=== PATIENT | male | born 1950 | race Caucasian/White ===

== ENCOUNTER 2021-03-25 15:32 | Inpatient (IN) ==
[2021-03-25] MEDS ORDERED: ONDANSETRON 4 MG/2 ML VIAL IV PRN (17:41)
[2021-03-25] MEDS ORDERED: ACETAMINOPHEN 325 MG TABLET PO PRN (17:41)
[2021-03-25] MEDS ORDERED: ALUMINUM/MAGNES/SIMETH MAX STR 30 ML UDCUP PO PRN (17:41)
[2021-03-25] MEDS ORDERED: PANTOPRAZOLE 40 MG VIAL IV ONE (18:14)
[2021-03-25] MEDS ORDERED: SODIUM CHLORIDE 0.9% 1,000 ML IV PRN (18:21)
[2021-03-25 18:36] LABS: Basophils # 0.1 10*3/uL (0.0-0.2); Basophils % 0.5 % (0.0-0.8); Eosinophils # 0.2 10*3/uL (0.0-0.87); Eosinophils % 1.8 % (0.00-10.9); Hematocrit 21.8 VOL% (42.0-52.0); Immature Granulocytes % 0.5 %; Immature Granulocytes Absolute 0.05 #; Lymphocytes # 1.3 10*3/uL (1.4-4.0); Lymphocytes % 12.8 % (21.2-54.2); Mean Corpuscular HGB Conc 26.6 GM/DL (32-36); Mean Corpuscular Volume 78.7 FL (87-102); Mean Platelet Volume 11.2 FL (9.6-12.0); Monocytes % 4.9 % (1.7-12.7); NRBC # 0.03 10*3/uL; Neutrophils % 79.5 % (38.7-73.9); Platelet Count 320 T/CUMM (130-400); Red Blood Count 2.77 MC/CUMM (3.8-5.5); Red Cell Distribution Width 18.8 % (9.3-17.3); White Blood Count 10.1 T/CUMM (4-12)
[2021-03-25] MEDS ORDERED: INFLUENZA VIRUS VACCINE 0.5 ML SYRINGE IM ONE (18:36)
[2021-03-25 18:50] LABS: Hemoglobin 5.8 GM/DL (14.0-18.0)
[2021-03-25 18:52] LABS: INR 1.1; PT Patient Result 12.3 SECS (10.5-12.0)
[2021-03-25 18:53] LABS: Alanine Aminotransferase 12 U/L (16-61); Albumin 2.7 G/DL (3.4-5.0); Alkaline Phosphatase 58 U/L (45-117); Aspartate Amino Transferase 17 U/L (0-37); Bilirubin,Total < 0.39 MG/DL (0.20-1.00); Blood Urea Nitrogen 20 MG/DL (7-18); Calcium 8.4 MG/DL (8.5-10.1); Carbon Dioxide 26 MMOL/L (21-32); Estimated Glom Filtration Rate 54 ML/MIN; Glucose 107 MG/DL (74-106); Osmolality,Calculated 279.5 MOS/KG (273-304); Sodium 139 MMOL/L (136-145); Total Protein 6.3 G/DL (6.4-8.2)
[2021-03-25 19:06] LABS: % Iron Saturation 3.2 % (18-50); Ferritin 22.9 ng/mL (26-388)
[2021-03-25 19:15] LABS: Folate 9.14 NG/ML (5.38-24.0)
[2021-03-25] MEDS: ATORVASTATIN 40 MG TABLET PO SCH (21:07)
[2021-03-25] MEDS: tiZANidine 4 MG TABLET PO SCH (21:07)
[2021-03-25] MEDS: DULoxetine 30 MG CAPSULE PO SCH (21:07)
[2021-03-25] MEDS: PREGABALIN 75 MG CAPSULE PO SCH (21:08)
[2021-03-25] MEDS: traZODone 50 MG TABLET PO SCH (21:08)
[2021-03-26 07:02] LABS: Basophils % 0.5 % (0.0-0.8); Eosinophils # 0.2 10*3/uL (0.0-0.87); Hematocrit 30.8 VOL% (42.0-52.0); Hemoglobin 9.6 GM/DL (14.0-18.0); Immature Granulocytes % 0.5 %; Immature Granulocytes Absolute 0.04 #; Lymphocytes # 0.9 10*3/uL (1.4-4.0); Lymphocytes % 11.9 % (21.2-54.2); Mean Corpuscular HGB Conc 31.2 GM/DL (32-36); Mean Corpuscular Volume 78.4 FL (87-102); Mean Platelet Volume 11.7 FL (9.6-12.0); Monocytes % 5.9 % (1.7-12.7); NRBC # 0.06 10*3/uL; Neutrophils % 79.2 % (38.7-73.9); Platelet Count 243 T/CUMM (130-400); Red Blood Count 3.93 MC/CUMM (3.8-5.5); Red Cell Distribution Width 18.7 % (9.3-17.3); White Blood Count 7.8 T/CUMM (4-12)
[2021-03-26 07:18] LABS: Alanine Aminotransferase < 9 U/L (16-61); Albumin 2.1 G/DL (3.4-5.0); Alkaline Phosphatase 51 U/L (45-117); Aspartate Amino Transferase 17 U/L (0-37); Blood Urea Nitrogen 17 MG/DL (7-18); Calcium 8.3 MG/DL (8.5-10.1); Carbon Dioxide 25 MMOL/L (21-32); Estimated Glom Filtration Rate 74 ML/MIN; Glucose 70 MG/DL (74-106); Osmolality,Calculated 278.4 MOS/KG (273-304); Potassium 3.9 MMOL/L (3.5-5.1); Sodium 140 MMOL/L (136-145); Total Protein 5.2 G/DL (6.4-8.2)
[2021-03-26] MEDS: LACTATED RINGERS 1,000 ML IV SCH ×2 (08:30→08:34)
[2021-03-26] MEDS ORDERED: PANTOPRAZOLE 40 MG VIAL IV SCH (09:00)
[2021-03-26] MEDS ORDERED: tiZANidine 4 MG TABLET PO PRN (09:14)
[2021-03-26] MEDS ORDERED: ETOMIDATE 20 MG/10 ML VIAL IV ONE (09:34)
[2021-03-26] MEDS ORDERED: propofoL 200 MG/20 ML VIAL IV ONE (09:34)
[2021-03-26] MEDS ORDERED: GLYCOPYRROLATE 0.4 MG/2 ML VIAL ONE (09:34)
[2021-03-26] MEDS ORDERED: LIDOCAINE 2% 5 ML VIAL ONE (09:34)
[2021-03-26] MEDS: EZETIMIBE 10 MG TABLET PO SCH (10:34)
[2021-03-26] MEDS: PREGABALIN 75 MG CAPSULE PO SCH ×2 (10:34→20:46)
[2021-03-26] MEDS: DULoxetine 30 MG CAPSULE PO SCH ×2 (10:34→20:46)
[2021-03-26] MEDS: METOPROLOL TARTRATE 25 MG TABLET PO SCH ×2 (10:34→20:46)
[2021-03-26 10:37] LABS: Hematocrit 31.5 VOL% (42.0-52.0)
[2021-03-26] MEDS: tiZANidine 4 MG TABLET PO SCH (10:37)
[2021-03-26 18:29] LABS: Hematocrit 34.9 VOL% (42.0-52.0); Hemoglobin 10.6 GM/DL (14.0-18.0)
[2021-03-26] MEDS: PANTOPRAZOLE 40 MG TABLET PO SCH (20:46)
[2021-03-26] MEDS: FERROUS SULFATE 325 MG TABLET PO SCH (20:46)
[2021-03-26] MEDS: ATORVASTATIN 40 MG TABLET PO SCH (20:46)
[2021-03-26] MEDS: traZODone 50 MG TABLET PO SCH (20:47)
[2021-03-27 05:33] LABS: Basophils % 0.3 % (0.0-0.8); Eosinophils # 0.2 10*3/uL (0.0-0.87); Eosinophils % 1.5 % (0.00-10.9); Hematocrit 32.8 VOL% (42.0-52.0); Immature Granulocytes % 0.4 %; Immature Granulocytes Absolute 0.04 #; Lymphocytes # 1.3 10*3/uL (1.4-4.0); Lymphocytes % 12.9 % (21.2-54.2); Mean Corpuscular HGB Conc 30.5 GM/DL (32-36); Mean Corpuscular Volume 78.1 FL (87-102); Mean Platelet Volume 11.3 FL (9.6-12.0); Monocytes % 6.7 % (1.7-12.7); NRBC # 0.05 10*3/uL; Neutrophils % 78.2 % (38.7-73.9); Platelet Count 261 T/CUMM (130-400); Red Cell Distribution Width 18.9 % (9.3-17.3); White Blood Count 9.7 T/CUMM (4-12)
[2021-03-27 05:49] LABS: Calcium 8.1 MG/DL (8.5-10.1); Osmolality,Calculated 277.4 MOS/KG (273-304); Potassium 3.6 MMOL/L (3.5-5.1)
[2021-03-27] MEDS: METOPROLOL TARTRATE 25 MG TABLET PO SCH ×2 (10:04→21:20)
[2021-03-27] MEDS: DULoxetine 30 MG CAPSULE PO SCH ×2 (10:04→21:20)
[2021-03-27] MEDS: PREGABALIN 75 MG CAPSULE PO SCH ×2 (10:05→21:19)
[2021-03-27] MEDS: EZETIMIBE 10 MG TABLET PO SCH (10:05)
[2021-03-27] MEDS: PANTOPRAZOLE 40 MG TABLET PO SCH ×2 (10:05→21:20)
[2021-03-27] MEDS: FERROUS SULFATE 325 MG TABLET PO SCH ×2 (10:05→21:20)
[2021-03-27] MEDS: LACTATED RINGERS 1,000 ML IV SCH (10:27)
[2021-03-27] MEDS: ATORVASTATIN 40 MG TABLET PO SCH (21:19)
[2021-03-27] MEDS: traZODone 50 MG TABLET PO SCH (21:20)
[2021-03-27] MEDS: oxyCODONE/ACETAMINOPHEN 5-325 MG TABLET PO PRN (21:31)
[2021-03-27] MEDS: TICAGRELOR 60 MG PO SCH (21:47)
[2021-03-28 06:12] LABS: Basophils # 0.1 10*3/uL (0.0-0.2); Basophils % 0.8 % (0.0-0.8); Eosinophils # 0.4 10*3/uL (0.0-0.87); Eosinophils % 4.8 % (0.00-10.9); Hematocrit 31.9 VOL% (42.0-52.0); Hemoglobin 9.5 GM/DL (14.0-18.0); Immature Granulocytes % 0.6 %; Immature Granulocytes Absolute 0.05 #; Lymphocytes # 1.6 10*3/uL (1.4-4.0); Lymphocytes % 20.2 % (21.2-54.2); Mean Corpuscular HGB Conc 29.8 GM/DL (32-36); Mean Corpuscular Volume 80.8 FL (87-102); Mean Platelet Volume 11.7 FL (9.6-12.0); Monocytes % 7.5 % (1.7-12.7); NRBC # 0.06 10*3/uL; Neutrophils % 66.1 % (38.7-73.9); Platelet Count 255 T/CUMM (130-400); Red Blood Count 3.95 MC/CUMM (3.8-5.5); Red Cell Distribution Width 19.8 % (9.3-17.3); White Blood Count 7.8 T/CUMM (4-12)
[2021-03-28 06:25] LABS: Calcium 7.8 MG/DL (8.5-10.1); Osmolality,Calculated 279.4 MOS/KG (273-304); Potassium 3.4 MMOL/L (3.5-5.1)
[2021-03-28] MEDS ORDERED: POTASSIUM CHLORIDE 20 MEQ TABLET PO PRN (08:20)
[2021-03-28] MEDS: DULoxetine 30 MG CAPSULE PO SCH ×2 (09:20→21:10)
[2021-03-28] MEDS: FERROUS SULFATE 325 MG TABLET PO SCH ×2 (09:21→21:10)
[2021-03-28] MEDS: TICAGRELOR 60 MG PO SCH ×2 (09:21→22:02)
[2021-03-28] MEDS: PANTOPRAZOLE 40 MG TABLET PO SCH ×2 (09:21→21:10)
[2021-03-28] MEDS: PREGABALIN 75 MG CAPSULE PO SCH ×2 (09:21→21:10)
[2021-03-28] MEDS: EZETIMIBE 10 MG TABLET PO SCH (09:21)
[2021-03-28] MEDS: METOPROLOL TARTRATE 25 MG TABLET PO SCH ×2 (09:21→21:10)
[2021-03-28] MEDS: oxyCODONE/ACETAMINOPHEN 5-325 MG TABLET PO PRN ×2 (13:17→21:11)
[2021-03-28] MEDS: ATORVASTATIN 40 MG TABLET PO SCH (21:10)
[2021-03-28] MEDS: traZODone 50 MG TABLET PO SCH (22:02)
[2021-03-29 05:45] LABS: Calcium 7.7 MG/DL (8.5-10.1); Osmolality,Calculated 282.1 MOS/KG (273-304); Potassium 3.6 MMOL/L (3.5-5.1)
[2021-03-29 05:46] LABS: Basophils % 0.6 % (0.0-0.8); Eosinophils # 0.4 10*3/uL (0.0-0.87); Eosinophils % 6.2 % (0.00-10.9); Hematocrit 32.6 VOL% (42.0-52.0); Hemoglobin 9.6 GM/DL (14.0-18.0); Immature Granulocytes % 0.6 %; Immature Granulocytes Absolute 0.04 #; Lymphocytes # 1.3 10*3/uL (1.4-4.0); Lymphocytes % 19.9 % (21.2-54.2); Mean Corpuscular HGB Conc 29.4 GM/DL (32-36); Mean Corpuscular Volume 81.7 FL (87-102); Mean Platelet Volume 10.8 FL (9.6-12.0); Monocytes % 7.7 % (1.7-12.7); NRBC # 0.02 10*3/uL; Platelet Count 250 T/CUMM (130-400); Red Blood Count 3.99 MC/CUMM (3.8-5.5); Red Cell Distribution Width 20.6 % (9.3-17.3); White Blood Count 6.6 T/CUMM (4-12)
[2021-03-29] MEDS: PREGABALIN 75 MG CAPSULE PO SCH ×2 (08:57→21:23)
[2021-03-29] MEDS: DULoxetine 30 MG CAPSULE PO SCH ×2 (08:57→21:23)
[2021-03-29] MEDS: METOPROLOL TARTRATE 25 MG TABLET PO SCH ×2 (08:57→21:23)
[2021-03-29] MEDS: PANTOPRAZOLE 40 MG TABLET PO SCH ×2 (08:58→21:24)
[2021-03-29] MEDS: FERROUS SULFATE 325 MG TABLET PO SCH (08:58)
[2021-03-29] MEDS: EZETIMIBE 10 MG TABLET PO SCH (08:58)
[2021-03-29] MEDS: oxyCODONE/ACETAMINOPHEN 5-325 MG TABLET PO PRN ×3 (08:59→21:24)
[2021-03-29] MEDS: TICAGRELOR 60 MG PO SCH (13:17)
[2021-03-29] MEDS: traZODone 50 MG TABLET PO SCH (21:23)
[2021-03-29] MEDS: ATORVASTATIN 40 MG TABLET PO SCH (21:24)
[2021-03-30 05:20] LABS: Basophils # 0.1 10*3/uL (0.0-0.2); Eosinophils # 0.4 10*3/uL (0.0-0.87); Eosinophils % 5.5 % (0.00-10.9); Hematocrit 32.3 VOL% (42.0-52.0); Hemoglobin 9.3 GM/DL (14.0-18.0); Immature Granulocytes % 0.3 %; Immature Granulocytes Absolute 0.02 #; Lymphocytes # 1.5 10*3/uL (1.4-4.0); Lymphocytes % 20.3 % (21.2-54.2); Mean Corpuscular HGB Conc 28.8 GM/DL (32-36); Mean Platelet Volume 11.3 FL (9.6-12.0); Monocytes % 8.3 % (1.7-12.7); Neutrophils % 64.6 % (38.7-73.9); Platelet Count 281 T/CUMM (130-400); Red Blood Count 3.89 MC/CUMM (3.8-5.5); Red Cell Distribution Width 21.2 % (9.3-17.3); White Blood Count 7.1 T/CUMM (4-12)
[2021-03-30 05:45] LABS: Hypochromasia 1+; Microcytosis 1+; Platelet Estimate Normal; Polychromasia Slight
[2021-03-30 05:53] LABS: Osmolality,Calculated 280.1 MOS/KG (273-304); Potassium 3.9 MMOL/L (3.5-5.1)
[2021-03-30] MEDS: oxyCODONE/ACETAMINOPHEN 5-325 MG TABLET PO PRN ×2 (08:02→22:25)
[2021-03-30] MEDS: METOPROLOL TARTRATE 25 MG TABLET PO SCH (09:45)
[2021-03-30] MEDS: EZETIMIBE 10 MG TABLET PO SCH (09:49)
[2021-03-30] MEDS: DULoxetine 30 MG CAPSULE PO SCH ×2 (09:49→22:05)
[2021-03-30] MEDS: PREGABALIN 75 MG CAPSULE PO SCH ×2 (09:50→22:05)
[2021-03-30] MEDS: PANTOPRAZOLE 40 MG TABLET PO SCH ×2 (09:50→22:05)
[2021-03-30] MEDS ORDERED: BISACODYL 5 MG TABLET PO ONE (12:00)
[2021-03-30] MEDS ORDERED: POLYETHYLENE GLYCOL POWDER 255 GM BOTTLE PO ONE (15:00)
[2021-03-30] MEDS ORDERED: MAGNESIUM CITRATE 300 ML BOTTLE PO ONE (21:00)
[2021-03-30] MEDS: traZODone 50 MG TABLET PO SCH (22:05)
[2021-03-30] MEDS: ATORVASTATIN 40 MG TABLET PO SCH (22:05)
[2021-03-31] MEDS: METOPROLOL TARTRATE 25 MG TABLET PO SCH ×3 (00:46→20:25)
[2021-03-31 06:31] LABS: INR 1.1; PT Patient Result 11.8 SECS (10.5-12.0)
[2021-03-31 06:32] LABS: Calcium 8.7 MG/DL (8.5-10.1); Osmolality,Calculated 280.1 MOS/KG (273-304); Potassium 3.9 MMOL/L (3.5-5.1)
[2021-03-31 07:39] LABS: Basophils # 0.1 10*3/uL (0.0-0.2); Basophils % 1.1 % (0.0-0.8); Eosinophils # 0.2 10*3/uL (0.0-0.87); Eosinophils % 3.4 % (0.00-10.9); Immature Granulocytes % 0.3 %; Immature Granulocytes Absolute 0.02 #; Lymphocytes # 1.4 10*3/uL (1.4-4.0); Lymphocytes % 23.2 % (21.2-54.2); Mean Corpuscular HGB Conc 28.8 GM/DL (32-36); Mean Corpuscular Volume 83.1 FL (87-102); Mean Platelet Volume 11.3 FL (9.6-12.0); Monocytes % 7.5 % (1.7-12.7); Neutrophils % 64.5 % (38.7-73.9); Platelet Count 287 T/CUMM (130-400); Red Blood Count 4.09 MC/CUMM (3.8-5.5); Red Cell Distribution Width 21.2 % (9.3-17.3); White Blood Count 6.1 T/CUMM (4-12)
[2021-03-31 07:56] LABS: Hemoglobin 9.8 GM/DL (14.0-18.0)
[2021-03-31] MEDS ORDERED: LACTATED RINGERS 1,000 ML IV SCH (08:00)
[2021-03-31] MEDS ORDERED: POLYETHYLENE GLYCOL POWDER 255 GM BOTTLE PO ONE (08:34)
[2021-03-31] MEDS: DULoxetine 30 MG CAPSULE PO SCH ×2 (10:14→20:25)
[2021-03-31] MEDS: PANTOPRAZOLE 40 MG TABLET PO SCH ×2 (10:14→20:25)
[2021-03-31] MEDS: PREGABALIN 75 MG CAPSULE PO SCH ×2 (10:14→20:25)
[2021-03-31] MEDS: EZETIMIBE 10 MG TABLET PO SCH (10:14)
[2021-03-31] MEDS: oxyCODONE/ACETAMINOPHEN 5-325 MG TABLET PO PRN ×2 (10:22→17:58)
[2021-03-31] MEDS ORDERED: MAGNESIUM CITRATE 300 ML BOTTLE PO ONE (18:00)
[2021-03-31] MEDS: traZODone 50 MG TABLET PO SCH (20:25)
[2021-03-31] MEDS: ATORVASTATIN 40 MG TABLET PO SCH (20:25)
[2021-04-01] MEDS: oxyCODONE/ACETAMINOPHEN 5-325 MG TABLET PO PRN ×2 (06:46→16:22)
[2021-04-01 07:33] LABS: Calcium 8.5 MG/DL (8.5-10.1)
[2021-04-01 07:58] LABS: Basophils # 0.1 10*3/uL (0.0-0.2); Eosinophils # 0.2 10*3/uL (0.0-0.87); Eosinophils % 2.3 % (0.00-10.9); Hematocrit 36.3 VOL% (42.0-52.0); Hemoglobin 10.3 GM/DL (14.0-18.0); Immature Granulocytes % 0.3 %; Immature Granulocytes Absolute 0.02 #; Lymphocytes % 13.7 % (21.2-54.2); Mean Corpuscular HGB Conc 28.4 GM/DL (32-36); Mean Corpuscular Volume 83.6 FL (87-102); Mean Platelet Volume 11.1 FL (9.6-12.0); Monocytes % 7.3 % (1.7-12.7); Neutrophils % 75.4 % (38.7-73.9); Platelet Count 284 T/CUMM (130-400); Red Blood Count 4.34 MC/CUMM (3.8-5.5); Red Cell Distribution Width 21.6 % (9.3-17.3); White Blood Count 6.9 T/CUMM (4-12)
[2021-04-01 08:00] LABS: Platelet Estimate Adequate
[2021-04-01] MEDS ORDERED: LACTATED RINGERS 1,000 ML IV SCH (08:00)
[2021-04-01] MEDS: DULoxetine 30 MG CAPSULE PO SCH (08:29)
[2021-04-01] MEDS: METOPROLOL TARTRATE 25 MG TABLET PO SCH (08:29)
[2021-04-01] MEDS: PREGABALIN 75 MG CAPSULE PO SCH (08:29)
[2021-04-01] MEDS: PANTOPRAZOLE 40 MG TABLET PO SCH (08:30)
[2021-04-01] MEDS: EZETIMIBE 10 MG TABLET PO SCH (08:30)
[2021-04-01] MEDS ORDERED: LIDOCAINE 2% 5 ML VIAL ONE (08:40)
[2021-04-01] MEDS ORDERED: propofoL 200 MG/20 ML VIAL IV ONE (08:40)
[2021-04-01] MEDS ORDERED: ETOMIDATE 20 MG/10 ML VIAL IV ONE (08:40)
[2021-04-01 16:16] VITALS: BP 141/42
[2021-04-01] MEDS ORDERED: INFLUENZA VIRUS VACCINE 0.5 ML SYRINGE IM ONE (17:43)
== END 2021-04-01 17:59 | DRG 813 ==
LOC: SUATTDRO 17:33 → N.CC 17:33 → N.4E 03-26 21:10
PROVIDERS: ADMIT Family Medicine; ATTEND Emergency Medicine